=== PATIENT | female | born 1955 | race Caucasian/White ===

== ENCOUNTER 2018-08-27 17:06 | Emergency (ER) | payer OTHER ==
[~2018-08-27] VITALS: Ht 165.1 cm; Wt 59.0 kg
[2018-08-27] MEDS ORDERED: ATEN25 (17:12)
[2018-08-27] MEDS ORDERED: LISI5 (17:12)
[2018-08-27] MEDS ORDERED: Percocet 5-3251 EACH (17:15)
[2018-08-27] MEDS ORDERED: METO50 (17:15)
[2018-08-27 17:30] LABS: Source, Urine Voided
[2018-08-27 17:36] LABS: Bilirubin, Urine Neg (Neg); Blood, Urine Neg (Neg); Glucose Qualitative, Urine Neg (Neg); Ketones, Urine Neg (Neg); Leukocyte Esterase, Urine Neg (Neg); Nitrite, Urine Neg (Neg); Protein, Urine 1+ (Neg); Specific Gravity, Urine 1.005 (1.003-1.022); Urobilinogen, Urine NORM (Normal)
[2018-08-27 17:44] LABS: Appearance, Urine Clear (Clear); Color, Urine No Color (P-Yellow)
[2018-08-27 17:45] LABS: BASOPHILS ABSOLUTE AUTO 0.04 K/mm3 (0.00-0.23); BASOPHILS PERCENT AUTO 1 % (0-2); EOSINOPHILS ABSOLUTE AUTO 0.15 K/mm3 (0.00-0.68); EOSINOPHILS PERCENT AUTO 2 % (0-6); Hematocrit 39.5 % (33.0-51.0); Hemoglobin 13.3 g/dL (11.5-16.0); IMMATURE GRAN ABSOLUTE AUTO 0.02 K/mm3 (0.00-0.10); IMMATURE GRAN PERCENT AUTO 0 % (0-1); LYMPHOCYTES PERCENT AUTO 28 % (21-46); MONOCYTES ABSOLUTE AUTO 0.64 K/mm3 (0.16-1.47); MONOCYTES PERCENT AUTO 9 % (4-13); Mean Corpuscular HGB 30.9 pg (26.0-34.0); Mean Corpuscular HGB Conc 33.7 g/dL (31.5-36.5); Mean Corpuscular Volume 92 fL (80-100); Mean Platelet Volume 9.7 fL (9.1-12.4); NEUTROPHILS ABSOLUTE AUTO 4.36 K/mm3 (1.96-9.15); NEUTROPHILS PERCENT AUTO 60 % (41-73); Platelet Count 216 K/mm3 (150-400); RDW Coefficient Variation 12.3 % (11.7-14.2); RDW Standard Deviation 41.2 fL (35.1-46.3); Red Blood Cell Count 4.31 M/mm3 (3.80-5.20); White Blood Cell Count 7.21 K/mm3 (4.00-11.30)
[2018-08-27 17:54] LABS: Alanine Aminotransfer (ALT/SGP 26 U/L (12-78); Albumin, Blood 3.8 g/dL (3.4-5.0); Albumin/Globulin Ratio 1.1 (0.8-1.8); Alk Phos 81 U/L (50-136); Anion Gap 9 mmol/L (6-16); Aspartate Aminotrans (AST/SGOT 20 U/L (12-37); Bilirubin, Total 0.6 mg/dL (0.1-1.0); Blood Urea Nitrogen 15 mg/dL (8-24); Bun/Creatinine Ratio 25.6 (12.0-20.0); CO2, Blood 24 mmol/L (21-32); Chloride, Blood 104 mmol/L (98-108); Creatinine, Blood 0.59 mg/dL (0.40-1.00); Globulin, Blood 3.5 g/dL (2.2-4.0); Glomerular Filtration Rate >60 (60-); Glucose, Blood 103 mg/dL (70-99); Sodium, Blood 137 mmol/L (136-145); Total Protein, Blood 7.3 g/dL (6.4-8.2)
[2018-08-27] MEDS ORDERED: Percocet 5-3251 EACH PO (20:22)
== END 2018-08-27 20:37 | disposition home or self-care (01) ==
LOC: ER 17:06
PROVIDERS: Emergency Medicine
DX: R10.9 Unspecified abdominal pain (principal); R11.0 Nausea; I10 Essential (primary) hypertension; Z88.8 Allergy status to other drugs, medicaments and biological substances; Z79.899 Other long term (current) drug therapy; Z87.891 Personal history of nicotine dependence
CPT/HCPCS: 74176; 80053; 85025; 96374; 96375; 99285-25; J2405; J3010

== ENCOUNTER 2021-06-24 11:05 | Emergency (ER) | payer MEDICARE, OTHER ==
[~2021-06-24 11:05] MED LIST: ATEN25; LISI5; METO50; Percocet 5-3251 EACH; Percocet 5-3251 EACH PO
[2021-07-04] MEDS ORDERED: Amlodipine Bes2.5 MG PO (12:15)
[2021-07-04] MEDS ORDERED: DULO60 PO (12:15)
[2021-07-04] MEDS ORDERED: ATOR40TA PO (12:15)
[2021-07-04] MEDS ORDERED: LOSARTAN POTAS100 M1 PO (12:15)
[2021-07-04] MEDS ORDERED: GABA300 PO (12:15)
[2021-07-04] MEDS ORDERED: METO100 PO (12:16)
== END 2021-06-24 11:25 | disposition left against medical advice (07) ==
LOC: ER 11:05
DX: Z53.21 Procedure and treatment not carried out due to patient leaving prior to being seen by health care provider (principal)

== ENCOUNTER 2021-09-15 11:04 | Day surgery (SDC) | payer MEDICARE, OTHER ==
[~2021-09-15] VITALS: Ht 165.1 cm; Wt 69.8 kg
[~2021-09-15 11:04] MED LIST changes: +ATOR40TA PO; +Amlodipine Bes2.5 MG PO; +DULO60 PO; +GABA300 PO; +LOSARTAN POTAS100 M1 PO; +METO100 PO
[2021-09-15] MEDS ORDERED: BUPRENORPHN-NA1 EAC2 SL (11:44)
--- NOTE | 2021-09-15 14:12 | NUR ---
09/15/21 1412 Landen Rubio PATIENT UP TO BATHROOM WITHOUT COMPLICATION TO VOID
== END 2021-09-15 14:10 | disposition home or self-care (01) ==
LOC: ORSCSDS 11:04
PROVIDERS: Podiatrist Foot & Ankle Surgery
PROC: 0QPP04Z Removal of Internal Fixation Device from Left Metatarsal, Open Approach (ICD-10-PCS; principal; 2021-09-15 12:30)
PROC: 0SGJ04Z Fusion of Left Tarsal Joint with Internal Fixation Device, Open Approach (ICD-10-PCS; principal; 2021-09-15 12:30)
DX: M20.12 Hallux valgus (acquired), left foot (principal); T84.84XA Pain due to internal orthopedic prosthetic devices, implants and grafts, initial encounter; I10 Essential (primary) hypertension; G47.33 Obstructive sleep apnea (adult) (pediatric); Z87.891 Personal history of nicotine dependence; N18.9 Chronic kidney disease, unspecified; Z86.73 Personal history of transient ischemic attack (TIA), and cerebral infarction without residual deficits; Z79.899 Other long term (current) drug therapy
CPT/HCPCS: C1713; J0171; J0690; J1100; J2370; J2405; J2704; J3010; J7120

== ENCOUNTER → 2021-11-05 | Outpatient (CLI) | payer MEDICARE, OTHER ==
[~2021-11-05] MED LIST changes: +BUPRENORPHN-NA1 EAC2 SL
[2021-11-11 13:49] LABS: Stool Occult Bld Immuno 1 Positive (NEGATIVE)
== END | disposition home or self-care (01) ==
LOC: LAB SHORT 13:00
PROVIDERS: Physician Assistant
DX: Z12.11 Encounter for screening for malignant neoplasm of colon (principal)
CPT/HCPCS: G0328

== ENCOUNTER 2022-04-23 08:13 | Day surgery (SDC) | payer MEDICARE, OTHER ==
[~2022-04-23] VITALS: Ht 165.1 cm; Wt 67.6 kg
== END 2022-04-23 10:32 | disposition home or self-care (01) ==
LOC: ORSCSDS 08:13
PROVIDERS: Internal Medicine Gastroenterology
PROC: 0DJD8ZZ Inspection of Lower Intestinal Tract, Via Natural or Artificial Opening Endoscopic (ICD-10-PCS; principal; 2022-04-23 09:30)
DX: R19.5 Other fecal abnormalities (principal); I10 Essential (primary) hypertension; Z87.891 Personal history of nicotine dependence; Z79.82 Long term (current) use of aspirin; Z79.899 Other long term (current) drug therapy
CPT/HCPCS: J2704; J7120

== ENCOUNTER → 2023-04-28 | Outpatient (CLI) | payer MEDICARE, OTHER ==
[2023-05-04 09:32] LABS: Stool Occult Bld Immuno 1 Negative (NEGATIVE)
== END | disposition home or self-care (01) ==
LOC: LAB SHORT 12:00 → LAB 12:00
PROVIDERS: Physician Assistant
DX: Z12.11 Encounter for screening for malignant neoplasm of colon (principal)
CPT/HCPCS: G0328

== ENCOUNTER 2024-09-20 10:39 | Day surgery (SDC) | payer OTHER, MEDICARE ==
[~2024-09-20] VITALS: Ht 165.1 cm; Wt 58.8 kg
[~2024-09-20 10:39] MED LIST changes: +Lactated Ringer's 1,000 ML ONE
[2024-09-20] MEDS ORDERED: propofoL 20 ML IV ONE (10:51)
[2024-09-20] MEDS ORDERED: Midazolam HCl 1MG / ML 2ML Vial ONE (10:51)
[2024-09-20] MEDS ORDERED: Bupivacaine 0.5% HCl 5 MG/ML 30MLVIAL ONE (10:53)
[2024-09-20] MEDS ORDERED: Dexamethasone Sod Phos 10 MG/ML 1ML VIAL ONE (10:55)
[2024-09-20] MEDS ORDERED: CeFAZolin Sodium 2,000 MG VIAL ONE (10:58)
[2024-09-20] MEDS ORDERED: Lactated Ringer's 1,000 ML IV ONE ×3 (10:59→14:22)
[2024-09-20] MEDS ORDERED: NS 50 ML IV ONE (10:59)
[2024-09-20] MEDS ORDERED: Aspir 8181 MG (11:09)
[2024-09-20] MEDS ORDERED: BUSPIRONE HCL30 M6 (11:09)
[2024-09-20] MEDS ORDERED: IBU800 M1 (11:10)
[2024-09-20] MEDS ORDERED: REMERON1510 (11:10)
--- NOTE | 2024-09-20 12:13 | NUR ---
09/20/24 1213 Brendan Paulson TIME OUT W/ DR. CALLAHAN AND BRENDAN RN FOR NERVE BLOCK. TIME OUT AT 1203. START TIME 1207. END TIME 1210. PT ON PULSE OX TO MONITOR O2 SATURATIONS. SATURATIONS BETWEEN 98-96% ON RA. NO ISSUES NOTED.
[2024-09-20] MEDS ORDERED: Phenylephrine HCl 100 MCG/ML-NS 10MLSYR (1MG/10ML) ONE (12:22)
[2024-09-20] MEDS ORDERED: Ondansetron HCl 2 MG / ML 2ML Vial ONE (12:24)
--- NOTE | 2024-09-20 12:35 | NUR ---
09/20/[address] COMPLETED AXILLARY BLOCK IN PER OP.
[2024-09-20] MEDS ORDERED: FentaNYL Citrate 50 MCG/ML 2 ML Injection ONE ×2 (14:58→16:45)
[2024-09-20] MEDS ORDERED: Vasopressin 20 UNITS/ML 1ML Vial ONE (15:22)
[2024-09-20] MEDS ORDERED: Esmolol HCL 10 MG/ML 10ML VIAL ONE (16:03)
--- NOTE | 2024-09-20 16:36 | NUR ---
09/20/24 1636 KEHINDE WEBB PT WAS INCONTINENT OF URINE IN OR. CLEAN GOWN PLACED ON HER AND REMOVED WET UNDERWARE. PT CLEANED UP AND PLACED DISPOSIBLE UNDERWARE AND PAD IN PLACE. - ALL DONE IN PACU. CURRENTLY, PT IS IN BED, ON A BEDPAN.
[2024-09-20] MEDS ORDERED: OxyCODONE HCL 5 MG TAB ONE (17:07)
[2024-09-20 17:33] VITALS: BP 89/73
== END 2024-09-20 17:46 | disposition home or self-care (01) ==
LOC: ORSCSDS 10:39
PROVIDERS: Orthopaedic Surgery
PROC: 0PSJ04Z Reposition Left Radius with Internal Fixation Device, Open Approach (ICD-10-PCS; principal; 2024-09-20 12:00)
DX: S52.502A Unspecified fracture of the lower end of left radius, initial encounter for closed fracture (principal); W01.0XXA Fall on same level from slipping, tripping and stumbling without subsequent striking against object, initial encounter; E78.5 Hyperlipidemia, unspecified; G47.33 Obstructive sleep apnea (adult) (pediatric); Z86.73 Personal history of transient ischemic attack (TIA), and cerebral infarction without residual deficits; F32.A Depression, unspecified; Z79.899 Other long term (current) drug therapy; Z87.891 Personal history of nicotine dependence; Z79.82 Long term (current) use of aspirin; I12.9 Hypertensive chronic kidney disease with stage 1 through stage 4 chronic kidney disease, or unspecified chronic kidney disease; N18.9 Chronic kidney disease, unspecified
CPT/HCPCS: A9270; C1713; J0690; J1100; J2250; J2371; J2405; J2704; J3010; J7120

== ENCOUNTER 2024-12-08 07:25 | Day surgery (SDC) | payer MEDICARE ==
[~2024-12-08] VITALS: Ht 165.1 cm; Wt 60.2 kg
[~2024-12-08 07:25] MED LIST changes: +Aspir 8181 MG; +B-12500 MC2 PO; +BUSPIRONE HCL30 M6; +EPINEPhrine HCl 1 MG/ML 1ML Amp ONE; +IBU800 M1; -Lactated Ringer's 1,000 ML ONE; +MERIBIN5 MG; +OXYC5 PO; +REMERON1510; +Ropivacaine 0.5% HCL/PF 5 MG/ML 30ML Vial ONE; +TURMERIC500 M2; +Vitamin D1000 UNI1 PO
[2024-12-08] MEDS ORDERED: CeFAZolin Sodium 2,000 MG VIAL ONE (07:37)
[2024-12-08] MEDS ORDERED: Lactated Ringer's 1,000 ML IV ONE (08:15)
[2024-12-08] MEDS ORDERED: FentaNYL Citrate 50 MCG/ML 2 ML Injection ONE (08:50)
[2024-12-08] MEDS ORDERED: propofoL 20 ML IV ONE (08:50)
[2024-12-08] MEDS ORDERED: EPINEPhrine HCl 1 MG/ML 1ML Amp XX ONE (09:03)
--- NOTE | 2024-12-08 09:11 | NUR ---
12/08/[address] IN AT [address] SERVIN.
[2024-12-08] MEDS ORDERED: Dexamethasone Sod Phos 10 MG/ML 1ML VIAL ONE (09:47)
[2024-12-08] MEDS ORDERED: Ketorolac Tromethamine 30mg Vial ONE (09:47)
[2024-12-08] MEDS ORDERED: Ondansetron HCl 2 MG / ML 2ML Vial ONE (09:47)
[2024-12-08] MEDS ORDERED: Phenylephrine HCl 100 MCG/ML-NS 10MLSYR (1MG/10ML) ONE (09:47)
[2024-12-08 10:49] VITALS: BP 97/72
--- NOTE | 2024-12-08 10:59 | NUR ---
12/08/24 John9 Shayna Brown: DISCUSSED BP WITH ABRIL PHILLIPS. PRE OP BP WAS 150/74 AND 142/70 AND IN STEPDOWN BPS HAVE BEEN 90'S/70'S. CUFF CHANGED TO SMALL ADULT CUFF AND REMAINS 90'S/70'S. HR 60-4. PT DENIES LIGHTHEADEDNESS/DIZZINESS OR OTHER SYMPTOMS. PER JACQUELINE MEDINA CRNA OK TO DISCHARGE.
== END 2024-12-08 11:05 | disposition home or self-care (01) ==
LOC: ORSCSDS 07:25 → ORSCMMR 08:45 → ORSCSDS 11:05 → ORSCMMR 12:30 → ORD 12:30 → ORSCSDS 12-20 12:30
PROVIDERS: Orthopaedic Surgery
PROC: 0RPP04Z Removal of Internal Fixation Device from Left Wrist Joint, Open Approach (ICD-10-PCS; principal; 2024-12-08 08:45)
DX: T84.9XXA Unspecified complication of internal orthopedic prosthetic device, implant and graft, initial encounter (principal); S52.502D Unspecified fracture of the lower end of left radius, subsequent encounter for closed fracture with routine healing; G47.33 Obstructive sleep apnea (adult) (pediatric); Z86.73 Personal history of transient ischemic attack (TIA), and cerebral infarction without residual deficits; I12.9 Hypertensive chronic kidney disease with stage 1 through stage 4 chronic kidney disease, or unspecified chronic kidney disease; N18.9 Chronic kidney disease, unspecified; E78.5 Hyperlipidemia, unspecified; Z87.891 Personal history of nicotine dependence; Z79.899 Other long term (current) drug therapy; Z79.82 Long term (current) use of aspirin
CPT/HCPCS: J0171; J0690; J1100; J1885; J2371; J2405; J2704; J2795; J3010